=== PATIENT | male | born 1965 | race Caucasian/White ===

== ENCOUNTER 2024-09-06 06:17 | Emergency (ER) | payer BC ==
--- NOTE | 2024-09-06 06:40 | ED ---
Abdominal Pain HPI - General Chief Complaint: Abdominal Pain Stated Complaint: Abd pain Time Seen by Provider: 09/06/24 06:37 Source: patient, EMS, RN notes reviewed Mode of arrival: EMS Limitations: no limitations - History of Present Illness Initial Comments: This is a 58-year-old male who presents to the emergency department for abdominal pain. Patient was woken up at 3 AM with pain in his right lower abdomen. Denies any radiation of pain. He has associated nausea and vomiting. Denies any history of similar pain in the past. Denies any history of kidney stones. He does feel like he was only able to urinate a small amount. He no longer has his appendix or his gallbladder. MD Complaint: abdominal pain - Related Data Previous Rx's Medication Instructions Recorded HYDROcodone/APAP 5-325MG [[place] 1 tab PO Q6HR PRN 3 Days #12 tab 09/06/24 5-325] Ketorolac [Toradol] 10 mg PO Q6HR PRN #15 tab 09/06/24 Ondansetron Odt [Zofran Odt] 4 mg PO Q8HR PRN #15 tab 09/06/24 Tamsulosin [Flomax] 0.4 mg PO DAILY #5 cap 09/06/24 Allergies Allergy/AdvReac Type Severity Reaction Status Date / Time No Known Allergies Allergy Verified 09/06/24 06:27 Review of Systems ROS Statement: Those systems with pertinent positive or pertinent negative responses have been documented in the HPI. ROS Other: All systems not noted in ROS Statement are negative. Past Medical History Past Medical History: Deep Vein Thrombosis (DVT), Hypertension History of Any Multi-Drug Resistant Organisms: None Reported Past Surgical History: Appendectomy, Cholecystectomy Past Psychological History: No Psychological Hx Reported Smoking Status: Former smoker Past Alcohol Use History: Occasional Past Drug Use History: None Reported General Exam Limitations: no limitations General appearance: alert, in no apparent distress Head exam: Present: atraumatic, normocephalic, normal inspection Respiratory exam: Present: normal lung sounds bilaterally. Absent: respiratory distress, wheezes, rales, rhonchi, stridor Cardiovascular Exam: Present: regular rate, normal rhythm GI/Abdominal exam: Present: soft, tenderness (RLQ). Absent: distended Neurological exam: Present: alert, oriented X3, CN II-XII intact Psychiatric exam: Present: normal affect, normal mood Skin exam: Present: warm, dry, intact, normal color. Absent: rash Course Vital Signs 09/06/24 09/06/24 09/06/24 06:20 06:57 08:01 Temperature 97.4 F L Pulse Rate 54 L Respiratory 22 Rate Blood Pressure 188/106 194/108 160/92 O2 Sat by Pulse 96 Oximetry Medical Decision Making - Medical Decision Making This is a 58-year-old male who presents to the emergency department for abdominal pain. Was pt. sent in by a medical professional or institution? @ -No Did you speak to anyone other than the patient for history? @ -No Did you review nursing and triage notes? @ -Yes, and I agree, it is accurate with regards to the patient's symptoms. Were old charts reviewed? @ -No Differential Diagnosis? @ -Differential Abdominal Pain Men: Appendicitis, cholecystitis, diverticulosis, ischemic bowel, pancreatitis, hepatitis, UTI, gastroenteritis, AAA, incarcerated hernia, bowel obstruction, constipation, inflammatory bowel, hepatitis, peptic ulcer disease, splenic infarction, perforated viscus, testicular torsion, this is not meant to be an all-inclusive list EKG interpreted by me (3pts min.)? @ -Not obtained X-rays interpreted by me (1pt min.)? @ -Not obtained CT interpreted by me (1pt min.)? @ -CT scan of the abdomen and pelvis obtained. My interpretation identifies a right ureteral calculus. U/S interpreted by me (1pt. min.)? @ -Not obtained What testing was considered but not performed? (CT, X-rays, U/S, labs)? Why? @ -None What meds were considered but not given? Why? @ -None Did you discuss the management of the patient with other professionals? @ -No Did you reconcile home meds? @ -No Was smoking cessation discussed for >3mins.? @ -No Was critical care preformed (if so, how long)? @ -No Were there social determinants of health that impacted care today? How? (Homelessness, low income, unemployed, alcoholism, drug addiction, transportation, low edu. Level, literacy, decrease access to med. care, usp, rehab)? @ -No Was there de-escalation of care discussed even if they declined? (Discuss DNR or withdrawal of care, Hospice)? @ -No What co-morbidities impacted this encounter? (DM, HTN, Smoking, COPD, CAD, Cancer, CVA, Hep., AIDS, mental health diagnosis, sleep apnea, morbid obesity)? @ -None Was patient admitted / discharged? @ -Discharged. Lab work demonstrates mild leukocytosis with a white blood cell count of 10.07. Lactic acid mildly elevated at 2.7. Lab work otherwise unremarkable. Urinalysis demonstrates a large amount of blood but is negative for signs of infection. 1 L of IV fluids administered. CT scan of the abdomen and pelvis demonstrates a 3 mm calculus in the right UVJ with mild hydroureteronephrosis. Findings reviewed with the patient. Symptoms well- controlled in the emergency department. Prescription for Toradol, [place], Zofran, and Flomax provided with dosing instructions reviewed. Advised follow- up with his urologist for reevaluation. Patient discharged home in stable condition. Case discussed with ED attending Dr. Nielsen. Return precautions reviewed in depth, the patient is instructed to return to the emergency department with any new, worsening, or concerning symptoms. Patient verbalized understanding. Undiagnosed new problem with uncertain prognosis? @ -None Drug Therapy requiring intensive monitoring for toxicity (Heparin, Nitro, Insulin, Cardizem)? @ -None Were any procedures done? @ -None Diagnosis/symptom? @ -Right ureteral calculus, hydronephrosis Acute, or Chronic, or Acute on Chronic? @ -Acute Uncomplicated (without systemic symptoms) or Complicated (systemic symptoms)? @ -Uncomplicated Side effects of treatment? @ -None Exacerbation, Progression, or Severe Exacerbation] @ -Not applicable Poses a threat to life or bodily function? @ -No - Lab Data Result diagrams: 09/06/24 06:40 09/06/24 06:40 Lab Results 09/06/24 09/06/24 09/06/24 Range/Units 06:40 06:40 06:40 WBC 10.07 H (4.50-10.00) 10*3/uL RBC 4.93 (4.40-5.60) 10*6/uL Hgb 15.5 (13.0-17.0) g/dL Hct 44.0 (39.6-50.0) % MCV 89.2 (80.0-97.0) fL MCH 31.4 (27.0-32.0) pg MCHC 35.2 (32.0-37.0) g/dL Plt Count 256 (140-440) 10*3/uL MPV 10.6 (9.5-12.2) fL Immature Gran % (Auto) 1.6 % Neutrophils % 69.9 % Lymphocytes % 20.8 % Monocytes % 6.5 % Eosinophils % 0.7 % Basophils % 0.5 % Immature Gran # 0.16 H (0.00-0.04) 10*3/uL Neutrophils # 7.05 (1.80-7.70) 10*3/uL Lymphocytes # 2.09 (0.90-5.00) 10*3/uL Monocytes # 0.65 (0.20-1.00) 10*3/uL Eosinophils # 0.07 (0.04-0.35) 10*3/uL Basophils # 0.05 (0.00-0.10) 10*3/uL Sodium 142 (137-145) mmol/L Potassium 4.6 (3.5-5.1) mmol/L Chloride 107 (98-107) mmol/L Carbon Dioxide 21 L (22-30) mmol/L Anion Gap 14 mmol/L BUN 18 (9-20) mg/dL Creatinine 1.00 (0.66-1.25) mg/dL Est GFR (CKD-EPI)AfAm >90 (>60 ml/min/1.73 sqM) Est GFR (CKD-EPI)NonAf 84 (>60 ml/min/1.73 sqM) Glucose 141 H (74-99) mg/dL Plasma Lactic Acid Justin 2.7 H* (0.7-2.0) mmol/L Calcium 9.4 (8.4-10.2) mg/dL Total Bilirubin 0.6 (0.2-1.3) mg/dL AST 32 (17-59) U/L ALT 29 (4-49) U/L Alkaline Phosphatase 86 (38-126) U/L Total Protein 7.3 (6.3-8.2) g/dL Albumin 4.5 (3.5-5.0) g/dL Urine Color Urine Appearance (Clear) Urine pH (5.0-8.0) Ur Specific [place] (1.001-1.035) Urine Protein (Negative) Urine Glucose (UA) (Negative) Urine Ketones (Negative) Urine Blood (Negative) Urine Nitrite (Negative) Urine Bilirubin (Negative) Urine Urobilinogen (<2.0) mg/dL Ur Leukocyte Esterase (Negative) Urine RBC (0-5) /hpf Urine WBC (0-5) /hpf Urine Mucus (None) /hpf 09/06/24 Range/Units 08:00 WBC (4.50-10.00) 10*3/uL RBC (4.40-5.60) 10*6/uL Hgb (13.0-17.0) g/dL Hct (39.6-50.0) % MCV (80.0-97.0) fL MCH (27.0-32.0) pg MCHC (32.0-37.0) g/dL Plt Count (140-440) 10*3/uL MPV (9.5-12.2) fL Immature Gran % (Auto) % Neutrophils % % Lymphocytes % % Monocytes % % Eosinophils % % Basophils % % Immature Gran # (0.00-0.04) 10*3/uL Neutrophils # (1.80-7.70) 10*3/uL Lymphocytes # (0.90-5.00) 10*3/uL Monocytes # (0.20-1.00) 10*3/uL Eosinophils # (0.04-0.35) 10*3/uL Basophils # (0.00-0.10) 10*3/uL Sodium (137-145) mmol/L Potassium (3.5-5.1) mmol/L Chloride (98-107) mmol/L Carbon Dioxide (22-30) mmol/L Anion Gap mmol/L BUN (9-20) mg/dL Creatinine (0.66-1.25) mg/dL Est GFR (CKD-EPI)AfAm (>60 ml/min/1.73 sqM) Est GFR (CKD-EPI)NonAf (>60 ml/min/1.73 sqM) Glucose (74-99) mg/dL Plasma Lactic Acid Justin (0.7-2.0) mmol/L Calcium (8.4-10.2) mg/dL Total Bilirubin (0.2-1.3) mg/dL AST (17-59) U/L ALT (4-49) U/L Alkaline Phosphatase (38-126) U/L Total Protein (6.3-8.2) g/dL Albumin (3.5-5.0) g/dL Urine Color Light Yellow Urine Appearance Clear (Clear) Urine pH 5.0 (5.0-8.0) Ur Specific [place] 1.018 (1.001-1.035) Urine Protein Trace H (Negative) Urine Glucose (UA) Negative (Negative) Urine Ketones Negative (Negative) Urine Blood Large H (Negative) Urine Nitrite Negative (Negative) Urine Bilirubin Negative (Negative) Urine Urobilinogen <2.0 (<2.0) mg/dL Ur Leukocyte Esterase Negative (Negative) Urine RBC >182 H (0-5) /hpf Urine WBC 3 (0-5) /hpf Urine Mucus Rare H (None) /hpf - Radiology Data Radiology results: report reviewed, image reviewed Disposition Clinical Impression: Right ureteral calculus, Hydronephrosis, right Disposition: HOME SELF-CARE Instructions (If sedation given, give patient instructions): Renal Colic (ED), Hydronephrosis (ED), Ureteral Stones (ED) Additional Instructions: Return to the emergency department with any new, worsening, or concerning symptoms. Take the Toradol with Tylenol as needed for pain relief. If you choose to take the Toradol, do not take any other anti-inflammatories such as ibuprofen, take one or the other. Take the [place] sparingly when your pain is the most severe. You can take the Zofran up to every 8 hours as needed for nausea and vomiting. If you already take the Flomax, you do not need to picker tender helper that prescription. Follow-up with your urologist for reevaluation. Prescriptions: Tamsulosin [Flomax] 0.4 mg PO DAILY #5 cap HYDROcodone/APAP 5-325MG [[place] 5-325] 1 tab PO Q6HR PRN 3 Days #12 tab PRN Reason: Pain Ketorolac [Toradol] 10 mg PO Q6HR PRN #15 tab PRN Reason: Pain Ondansetron Odt [Zofran Odt] 4 mg PO Q8HR PRN #15 tab PRN Reason: Nausea And Vomiting Is patient prescribed a controlled substance at d/c from ED?: Yes When asked, does pt state using other controlled substances?: No If prescribed controlled substance>3 days was MAPS reviewed?: Prescribed <3 Days Referrals: Nonstaff,Physician [Primary Care Provider] - 1-2 days Time of Disposition: 08:52
[2024-09-06] MEDS: SODIUM CHLORIDE 0.9% 1,000 ML IV ONE (06:44)
[2024-09-06] MEDS: ONDANSETRON 4 MG/2 ML VIAL IVP STA (06:45)
[2024-09-06] MEDS: KETOROLAC 15 MG/ML 1 ML VIAL IVP STA ×2 (06:46→08:02)
[2024-09-06] MEDS: MORPHINE SULFATE 4 MG/ML SYRINGE IVP STA ×2 (06:48→08:06)
--- NOTE | 2024-09-06 07:29 | CT ---
EXAMINATION TYPE: CT abdomen pelvis wo con CT DLP: 1384.4 mGycm, Automated exposure control for dose reduction was used. DATE OF EXAM: 09/06/2024 7:20 AM COMPARISON: None CLINICAL INDICATION:Male, 58 years old with history of RLQ abdominal pain; TECHNIQUE: Standard CT of the abdomen and pelvis without IV or oral contrast. Lack of IV or oral co ntrast limits evaluation of solid and hollow organ viscera. Coronal and sagittal reformats were perfo rmed. FINDINGS: LOWER CHEST: Minimal posterior dependent subsegmental atelectasis is noted. ABDOMEN LIVER: Left hepatic lobe 2.3 cm simple appearing cyst. Reidel lobe variant with the liver extending 2 0.0 cm in CC dimension. GALLBLADDER AND BILE DUCTS: The gallbladder is surgically absent. No biliary ductal dilatation. PANCREAS: Unremarkable noncontrast appearance SPLEEN: Unremarkable noncontrast appearance ADRENAL GLANDS: Unremarkable noncontrast appearance. KIDNEYS AND URETERS: No left hydronephrosis or renal calculi. Mild right hydroureteronephrosis with a n obstructing 3 mm calculus at the ureterovesical junction. Additional 2 punctate nonobstructing righ t renal calculi with largest measuring up to 2-3 mm. Right perinephric and periureteral fat stranding . PELVIS BLADDER: Underdistended but grossly unremarkable. REPRODUCTIVE: Unremarkable noncontrast appearance ABDOMEN & PELVIS STOMACH AND BOWEL: Stomach and duodenum are unremarkable. The appendix is not visualized. No bowel wa ll thickening or surrounding inflammatory changes. No evidence of bowel obstruction. PERITONEUM: No evidence of pneumoperitoneum or free fluid. VASCULATURE: No evidence of aortic aneurysm. MUSCULOSKELETAL: No acute osseous abnormalities. 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 LYMPH NODES: No gross evidence for lymphadenopathy. SOFT TISSUE/ABDOMINAL WALL: Unremarkable IMPRESSION: Mild right hydroureteronephrosis with an obstructing 3 mm calculus within the right ureterovesical ju nction. Additional punctate nonobstructing right renal calculi. [facility], , 09/06/2024 7:26 AM
[2024-09-06 08:02] LABS: Basophils # (A) 0.05 10*3/uL (0.00-0.10); Basophils % (A) 0.5 %; Eosinophils # (A) 0.07 10*3/uL (0.04-0.35); Eosinophils % (A) 0.7 %; HCT 44.0 % (39.6-50.0); HGB 15.5 g/dL (13.0-17.0); Lymphocytes # (A) 2.09 10*3/uL (0.90-5.00); Lymphocytes % (A) 20.8 %; MCH 31.4 pg (27.0-32.0); MCHC 35.2 g/dL (32.0-37.0); MCV 89.2 fL (80.0-97.0); Monocytes # (A) 0.65 10*3/uL (0.20-1.00); Monocytes % (A) 6.5 %; Neutrophils # (A) 7.05 10*3/uL (1.80-7.70); Neutrophils % (A) 69.9 %; Platelet Count 256 10*3/uL (140-440); RBC 4.93 10*6/uL (4.40-5.60); RDW 14.0 % (11.5-14.5); WBC 10.07 10*3/uL (4.50-10.00)
[2024-09-06 08:13] LABS: ALT 29 U/L (4-49); African American GFR (CKD) >90 (>60 ml/min/1.73 sqM); Albumin 4.5 g/dL (3.5-5.0); Anion Gap 14 mmol/L; Blood Urea Nitrogen 18 mg/dL (9-20); Calcium 9.4 mg/dL (8.4-10.2); Carbon Dioxide 21 mmol/L (22-30); Chloride 107 mmol/L (98-107); Glucose 141 mg/dL (74-99); Non-African American GFR(CKD) 84 (>60 ml/min/1.73 sqM); Sodium 142 mmol/L (137-145); Total Protein 7.3 g/dL (6.3-8.2)
[2024-09-06] MEDS: TAMSULOSIN 0.4 MG CAP.ER.24H PO STA (08:15)
[2024-09-06 08:18] LABS: AST 32 U/L (17-59); Alkaline Phosphatase 86 U/L (38-126); Potassium 4.6 mmol/L (3.5-5.1)
[2024-09-06 08:39] LABS: Bilirubin,Urine Negative (Negative); Blood,Urine Large (Negative); Color,Urine Light Yellow; Glucose,Urine (UA) Negative (Negative); Ketones,Urine Negative (Negative); Leukocyte Esterase,Urine Negative (Negative); Mucus,Urine Rare /hpf; Nitrite,Urine Negative (Negative); PH, Urine 5.0 (5.0-8.0); Protein,Urine Trace (Negative); RBC,Urine >182 /hpf (0-5); Specific Gravity,Urine 1.018 (1.001-1.035); Urobilinogen,Urine <2.0 mg/dL (<2.0); WBC,Urine 3 /hpf (0-5)
[2024-09-06 09:35] VITALS: BP 147/89; PULSE 89; RESP 16; TEMP 97.9
[2024-09-06] MEDS: ACET/COD 300 MG/30 MG STARTER PACK TAB BTL PO STA (09:36)
[2024-09-06] MEDS: ONDANSETRON 4 MG ODT STARTER PACK TAB BTL PO STA (09:37)
== END 2024-09-06 09:48 | disposition home or self-care (01) ==
LOC: EC 06:17
CPT/HCPCS: 36415; 74176; 80053; 81001; 83605; 85025; 96361; 96374; 96375; 96376; 99285